=== PATIENT | male | born 1980 | race Caucasian/White ===

== ENCOUNTER → 2016-12-02 | Outpatient (CLI) | payer BC ==
--- NOTE | 2016-12-02 15:20 | DI ---
Indication: ITS.REASON: N20.0 STONE PROCEDURE: KUB: Encounter: Initial Comparison: None Findings: Density adjacent to the left L5 transverse process measuring 8 mm in size suspicious for a ureteral stone. Rounded left sided probable pelvic phlebolith seen above the ischial spine. No additional areas concerning for renal or ureteral stones. Bowel gas pattern is nonobstructive and nonspecific. Kidneys are partially obscured by overlying bowel gas and stool. Impression: Possible left mid ureteral stone. .
== END ==
LOC: IMA 14:56
PROVIDERS: ATTEND Specialist
DX: N20.0 Calculus of kidney (principal)